=== PATIENT | female | born 1955 | race Caucasian/White ===

== ENCOUNTER 2016-07-13 14:19 | Observation (INO) | payer OTHER ==
--- NOTE | ~2016-07-13 | PRECARD ---
H&P [facility] [address] [place]. [address] NAME: HAL DE LA PAZ : 51 STATUS : ADM IN [facility]#: [id number] AGE: 60 ADM/REG DATE : 07/13/16 MR#: [id number] REPORT SERV DATE: 07/14/16 DICTATED BY: CEDRIC FONSECA DATE: 07/13/16 REPORT STATUS : Draft TRANSCRIBED BY: REJI DATE: 07/13/16 DATE OF ADMISSION: 07/13/2016 She is in the [facility] today 07/13/2016 at 1300 hours. Her medical record number at the [facility] is [id number]. CHIEF COMPLAINT: Chest pain. REASON FOR ADMISSION: Chest pain. SOURCE: Patient chart. HISTORY OF PRESENT ILLNESS: Ms. Westbrook is a very pleasant 60-year-old white woman with no significant past cardiac history, who reports that for the last several months, she has been having chest pain usually lasting 10-20 minutes at a time occurring every few days. Yesterday, she had an episode lasting about two hours, described as dull, 8/10 in severity, across her chest. Antacids and ranitidine did not help. She went to an [facility] and had an EKG performed. They wanted to transport her, but she declined. She is still having chest pain today and including now. She has had some shortness of breath, but no nausea, vomiting, or diaphoresis. It is now radiated to her back. She had some palpitations yesterday. No syncope. Occasional dizziness. REVIEW OF SYSTEMS: All other systems are negative. ALLERGIES: NO KNOWN DRUG ALLERGIES. MEDICATIONS: At home, included spironolactone, ranitidine, pantoprazole, metoclopramide, estrogen. CARDIAC RISK FACTORS: None. PAST MEDICAL HISTORY: Significant for ocular migraines, melanoma resected with x-ray therapy. No chemo. Reportedly in remission. Three C-sections, hysterectomy, appendectomy, gallbladder surgery. Denies any heart or stroke problems. SOCIAL HISTORY: The patient lives in [place], [place]. She is . She has two children, who are alive. One has a heart valve problem. She has another child who at age 25 due to motor vehicle accident. She works in a laboratory. FAMILY HISTORY: Father had coronary artery bypass grafting, two operations, his first was in his 60s. PHYSICAL EXAMINATION: HEENT: Anicteric. No xanthelasma, lips without cyanosis. NECK: No JVD, no thyromegaly, carotids 2+ and symmetrical without bruits. H&P PRE [address] [address] NAME: HAL DE LA PAZ : 51 STATUS : ADM [facility]#: [id number] AGE: 60 ADM/REG DATE : 07/13/16 MR#: [id number] REPORT SERV DATE: 07/14/16 DICTATED BY: CEDRIC FONSECA DATE: 07/13/16 REPORT STATUS : Draft TRANSCRIBED BY: MODL DATE: 07/13/16 LUNGS: Clear to auscultation. No use of accessory muscles. COR: Regular rate and rhythm. Normal S1 and S2. No S3 or S4 . No murmurs or rubs. PMI left 5th ICS, MCL . ABD: Positive bowel sounds, soft, non-tender. No bruits, no hepatomegaly. MS: No kyphosis. Normal muscle tone. EXT: Femoral and pedal pulses 2+ and symmetrical. No clubbing, cyanosis or edema. No varicosities. SKIN: No venous stasis changes. NEURO: Alert and oriented x 3. EKG reveals sinus rhythm, rate 83, normal axis and intervals, low volts, little change compared to previous tracing yesterday. LABORATORY DATA: Not yet available. IMPRESSION: 1. Chest pain with some atypical and some typical features. 2. No cardiac risk factors. 3. History of palpitations with sinus tachycardia on Holter with rare PACs. RECOMMENDATIONS: 1. Admit to telemetry. 2. Complete database. 3. Thallium stress test in a.m. if enzymes negative. 4. Further recommendations following the above. RYANNE/SIERRAL Cedric Fonseca M.D. / [id number] CC: Nba Frances M.D.
[2016-07-13 15:29] LABS: BASOPHILS 0.3 %; BASOPHILS ABSOLUTE 0.02 10/3/uL (0.0-0.16); EOSINOPHILS 2.5 %; EOSINOPHILS ABSOLUTE 0.19 10/3/uL (0.0-0.53); HEMATOCRIT 38.6 % (36.0-48.0); HEMOGLOBIN 13.4 g/dL (12.0-16.0); IMMATURE GRANULOCYTES 0.1 %; IMMATURE GRANULOCYTES ABSOLUTE 0.01 10/3/uL (0.0-0.11); LYMPHOCYTES 29.9 %; LYMPHOCYTES ABSOLUTE 2.28 10/3/uL (0.67-4.30); MEAN CORPUS HGB CONC 34.7 g/dL (32.0-36.0); MEAN CORPUSCULAR HEMOGLOB 32.9 pg (26.0-34.0); MEAN CORPUSCULAR VOLUME 94.8 fL (80-100); MEAN PLATELET VOLUME 8.9 fL (9.2-13.0); MONOCYTES 9.3 %; MONOCYTES ABSOLUTE 0.71 10/3/uL (0.21-1.20); NEUTROPHILS 57.9 %; NEUTROPHILS ABSOLUTE 4.41 10/3/uL (2.02-8.40); PLATELET COUNT 244 10/3/uL (150-400); RBC DISTRIBUTION WIDTH 12.6 % (12.0-16.0); RED CELL COUNT 4.07 10/6/uL (4.0-5.6); WHITE BLOOD CELLS 7.6 10/3/uL (4.5-10.5)
[2016-07-13 15:40] LABS: MANUAL DIFF NO %
[2016-07-13 15:44] LABS: BUN (BLOOD UREA NITROGEN) 11 MG/DL (6-23); CALCIUM, SERUM 9.8 MG/DL (8.5-10.4); CHLORIDE, SERUM 103 MMOL/L (96-112); CO2 (CARBON DIOXIDE) 28 MMOL/L (24-34); CPK 64 U/L (0-200); CREATININE 0.83 MG/DL (0.55-1.02); GFR AFRICAN AMERICAN 88 ML/MIN (>=60); GFR NON AFRICAN AMERICAN 76 ML/MIN (>=60); GLUCOSE, SERUM 85 MG/DL (60-99); SODIUM, SERUM 138 MMOL/L (135-148); TROPONIN I <0.02 NG/ML (<0.05)
[2016-07-13 15:45] LABS: CK-MB 1.1 NG/ML; POTASSIUM, SERUM 3.9 MMOL/L (3.5-5.3)
[2016-07-13 17:53] LABS: WBC (NOT ORDERED) (RFLEX) 0 (0-5)
[2016-07-13] MEDS ORDERED: ESTROVEN TABLET PO (18:24)
[2016-07-13] MEDS ORDERED: PROTONIX PO (18:25)
[2016-07-13] MEDS ORDERED: MELATONIN5 M1 PO (18:26)
[2016-07-13] MEDS ORDERED: SPIRO50 PO (18:26)
[2016-07-13] MEDS ORDERED: REG PO (18:27)
[2016-07-13] MEDS ORDERED: PROMETRIUM PO (18:27)
[2016-07-13] MEDS ORDERED: ZANTAC150 MG PO (18:27)
[2016-07-13 18:37] LABS: ASCORBIC ACID (UR NOT ORDER) NEG (NEG); BILIRUBIN, URINE NEGATIVE (NEG); KETONE, URINE TRACE MG/DL (NEG); LEUKOCYTE ESTERASE(NOT OR NEG (NEG)
[2016-07-14] MEDS ORDERED: PEPCID40 MG PO (11:31)
== END 2016-07-14 13:22 | disposition home or self-care (01) ==
LOC: 5NO 14:19
PROVIDERS: Internal Medicine Cardiovascular Disease
DX: R07.89 Other chest pain (principal); K21.9 Gastro-esophageal reflux disease without esophagitis; G43.B0 Ophthalmoplegic migraine, not intractable; Z90.710 Acquired absence of both cervix and uterus; Z90.49 Acquired absence of other specified parts of digestive tract; Z79.899 Other long term (current) drug therapy; Z98.890 Other specified postprocedural states
CPT/HCPCS: 71020; 78452; 80048; 81001; 82550; 82553; 84484; 85025; 93005; 93017; A9270-GY; A9502; G0378